=== PATIENT | female | born 1940 | race Caucasian/White ===

== ENCOUNTER 2021-10-03 01:10 | Emergency (ER) | payer OTHER ==
[~2021-10-03] VITALS: Ht 162.6 cm; Wt 47.6 kg
[2021-10-03] MEDS ORDERED: TETANUS/DIPHTHERIA TOX ADULT 0.5 ML SYR IM ONE (02:15)
[2021-10-03 03:32] VITALS: BP 159/89
== END 2021-10-03 03:06 | disposition home or self-care (01) ==
LOC: ER 01:14
DX: S01.01XA Laceration without foreign body of scalp, initial encounter (principal); W01.0XXA Fall on same level from slipping, tripping and stumbling without subsequent striking against object, initial encounter; Y93.01 Activity, walking, marching and hiking; Y92.008 Other place in unspecified non-institutional (private) residence as the place of occurrence of the external cause
CPT/HCPCS: 70450; 90714; 93005; 99283

== ENCOUNTER 2021-10-18 15:37 | Emergency (ER) | payer OTHER ==
[~2021-10-18] VITALS: Ht 162.6 cm; Wt 47.6 kg
== END 2021-10-18 16:08 | disposition home or self-care (01) ==
LOC: ER 16:06
DX: Z48.02 Encounter for removal of sutures (principal)
CPT/HCPCS: 99282